=== PATIENT | female | born 1985 | race Hispanic/Latino ===

== ENCOUNTER 2017-09-02 21:08 | Emergency (ER) | payer BC ==
[~2017-09-02] VITALS: Ht 157.5 cm; Wt 67.0 kg
[~2017-09-02 21:08] MED LIST: FLEXERIL10 MG PO; KEFLEX500 MG PO; MOTRIN800 MG PO; NAPROSYN500 MG PO; NOHOMEMEDS; NORCO 5/3251 TABLET PO; PERCOCET 5/31 TABLET PO; PRENATAL TABLE1 EAC3 PO; TYLENOL REGULA325 MG PO; ZOFRAN ODT8 MG PO; ZOFRAN4 MG PO
[2017-09-02] MEDS ORDERED: SKELAXIN800 MG PO (22:15)
[2017-09-02] MEDS ORDERED: NORCO 5/3251 TABLET PO (22:15)
[2017-09-02] MEDS ORDERED: MEDROL DOSEPAK4 MG PO (22:15)
[2017-09-02 22:33] VITALS: BP 120/89
== END 2017-09-02 22:33 | disposition home or self-care (01) ==
LOC: EME 21:08 → RME 21:08
DX: M54.31 Sciatica, right side (principal)
CPT/HCPCS: 99281; 99283; J1885

== ENCOUNTER → 2017-09-09 | Outpatient (CLI) | payer BC ==
[~2017-09-09] MED LIST changes: +MEDROL DOSEPAK4 MG PO; +SKELAXIN800 MG PO
== END | disposition home or self-care (01) ==
LOC: CT 16:42
DX: N83.292 Other ovarian cyst, left side (principal); R10.31 Right lower quadrant pain
CPT/HCPCS: 74177